=== PATIENT | male | born 1970 | race African-American/Black ===

== ENCOUNTER 2016-12-15 14:05 | Emergency (ER) | payer BC, OTHER ==
[2016-12-15] MEDS ORDERED: METOPROLOL TARTRATE PF/INJ 5 MG/5 ML SDV IV ONE ×2 (14:24→14:34)
[2016-12-15 14:34] LABS: PARTIAL THROMBOPLASTIN TIME 28.5 SEC (23.5-35.8); PROTHROMBIN TIME 12.8 SEC (11.4-15.4)
[2016-12-15 14:37] LABS: HEMATOCRIT 49.8 % (37.9-51.0); HEMOGLOBIN 16.5 g/dL (13.5-17.0); HGB HCT DIFFERENCE -0.3; MEAN CORPUSCULAR HEMOGLOBIN 29.5 pg (27.0-33.4); MEAN CORPUSCULAR HGB CONC 33.2 g/dL (32.0-36.0); MEAN CORPUSCULAR VOLUME 89 fl (80-97); RED CELL DISTRIBUTION WIDTH 14.2 % (11.5-14.0); WHITE BLOOD COUNT 13.1 10^3/uL (4.0-10.5)
[2016-12-15] MEDS ORDERED: ENOXAPARIN SODIUM INJ 100 MG/1 ML DISP.SYRIN SUBCUT ONE (14:41)
[2016-12-15 14:43] LABS: ANION GAP 12 (5-19); BLOOD UREA NITROGEN 13 mg/dL (7-20); CALCIUM 10.3 mg/dL (8.4-10.2); CARBON DIOXIDE 29 mmol/L (22-30); CHLORIDE 100 mmol/L (98-107); CREATINE KINASE 96 U/L (55-170); CREATININE RESULT 1.62 mg/dL (0.52-1.25); GLUCOSE 95 mg/dL (75-110); POTASSIUM 4.1 mmol/L (3.6-5.0); SODIUM 141.3 mmol/L (137-145)
--- NOTE | 2016-12-15 14:47 | ER Document Report ---
ED General - General Stated Complaint: CHEST PAIN Time Seen by Provider: 12/15/16 14:41 Mode of Arrival: Ambulatory Information source: Patient Notes: This is a 46-year-old man with a history of hypertension (not on any antihypertensives at this time) to the emergency room with chest pain radiating up into the neck. 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 He was working last night and started having chest ache radiating into the neck which was associated with shortness of breath. Patient states symptoms began gradually and were not as bad at the time. He states that it started around 4 AM. He states that the pain slowly progressed throughout the day and currently his pain is 8/10. The pain is worse with exertion. He states that walking makes the pain worse. Medical history: Hypertension (not treated), sinus disease. Medicines: Augmentin Past surgical history: None Cigarettes: None Drugs: None Primary CARE physician: [facility] TRAVEL OUTSIDE OF THE [place] IN LAST 30 DAYS: No - HPI Onset: This morning Onset/Duration: Gradual Quality of pain: Dull Severity: Severe - 8/10 at this time Associated symptoms: Chest pain, Shortness of breath. denies: Fever, Nausea, Vomiting Exacerbated by: Denies Relieved by: Denies Similar symptoms previously: No Recently seen / treated by doctor: No Past Medical History - General Information source: Patient - Social History Smoking Status: Never Smoker Cigarette use (# per day): No Chew tobacco use (# tins/day): No Frequency of alcohol use: None Drug Abuse: None Lives with: Family Family History: Reviewed & Not Pertinent Patient has suicidal ideation: No Patient has homicidal ideation: No - Past Medical History Cardiac Medical History: Reports: None Pulmonary Medical History: Reports: None EENT Medical History: Reports: None, Other - History of sinus disease Neurological Medical History: Reports: None Endocrine Medical History: Reports: None Renal/ Medical History: Reports: None Malignancy Medical History: Reports None GI Medical History: Reports: None Musculoskeltal Medical History: Reports None Skin Medical History: Reports None Psychiatric Medical History: Reports: None Traumatic Medical History: Reports: None Infectious Medical History: Reports: None Surgical Hx: Negative Review of Systems - Review of Systems Constitutional: denies: Chills, Fever EENT: No symptoms reported Cardiovascular: See HPI Respiratory: See HPI Gastrointestinal: No symptoms reported Genitourinary: No symptoms reported Male Genitourinary: No symptoms reported Musculoskeletal: No symptoms reported Skin: No symptoms reported Hematologic/Lymphatic: No symptoms reported Neurological/Psychological: No symptoms reported Physical Exam - Vital signs Vitals: Resp BP Pulse Ox 17 180/124 H 97 12/15/16 14:18 12/15/16 14:18 12/15/16 14:18 Notes: Physical exam: GENERAL: 46-year-old man, alert and oriented 3, patient does look pale and mildly diaphoretic HEAD: Atraumatic, normocephalic. EYES: Pupils equal round and reactive to light, extraocular movements intact, sclera anicteric, conjunctiva are normal. ENT: TMs normal, nares patent, oropharynx clear without exudates. Moist mucous membranes. NECK: Normal range of motion, supple without lymphadenopathy or JVD. LUNGS: Breath sounds clear to auscultation bilaterally and equal. No wheezes rales or rhonchi. HEART: Regular rate and rhythm without murmurs, rubs or gallops. ABDOMEN: Soft, normoactive bowel sounds. No tenderness to palpation. No guarding, no rebound. No masses appreciated. EXTREMITIES: Pulses to the upper extremities are equal. Normal range of motion , no pitting or edema. No clubbing or cyanosis. No Swelling or tenderness to the lower extremities NEUROLOGICAL: Cranial nerves II through XII grossly intact. Normal speech, normal gait. PSYCH: Normal mood, normal affect. SKIN: Warm, Dry, normal turgor, no rashes or lesions noted. Course - Re-evaluation Re-evalutation: 12/15/16 14:47 Note: The patient's initial diastolic blood pressure was 123 was noted to have tachycardia (127). The initial EKG shows ST elevations inferiorly as well as V6. Right sided leads do not show any elevations in V4. Patient was treated with IV metoprolol, aspirin, Plavix, Lovenox. The patient's blood pressure was able to be controlled: his blood pressure was lowered to 142/99 at which time thrombolytic was given. I have contacted [facility] transfer to [facility] 12/15/16 20:13 12/15/16 20:16 12/16/16 00:53 - Vital Signs Vital signs: Temp Pulse Resp BP Pulse Ox 99.0 F 23 H 146/108 H 100 12/15/16 15:16 12/15/16 15:10 12/15/16 15:10 12/15/16 15:10 - Laboratory Result Diagrams: 12/15/16 14:19 12/15/16 14:19 Laboratory results interpreted by me: 12/15/16 12/15/16 14:19 14:19 WBC 13.1 H RBC 5.60 H RDW 14.2 H Creatinine 1.62 H Est GFR ( Amer) 56 L Est GFR (Non-Af Amer) 46 L Calcium 10.3 H - Diagnostic Test Radiology reviewed: Image reviewed - Chest x-ray shows no obvious infiltrates. No pneumothorax. Critical Care Note - Critical Care Note Total time excluding time spent on procedures (mins): 55 Discharge - Discharge Clinical Impression: ACS (acute coronary syndrome) Condition: Serious Disposition: [facility]
[2016-12-15] MEDS ORDERED: ONDANSETRON HCL INJ/PF 4 MG/2 ML SDV IV ONE (14:53)
[2016-12-15] MEDS ORDERED: MORPHINE SULFATE 10 MG/ML INJ IV ONE (14:53)
[2016-12-15 14:55] LABS: CREATINE KINASE MB 0.65 ng/mL (<4.55)
[2016-12-15 14:59] LABS: TROPONIN I < 0.012 ng/mL
[2016-12-15] MEDS ORDERED: ACETAMINOPHEN 325 MG TABLET PO ONE (15:01)
--- NOTE | 2016-12-15 15:13 | RADIOLOGY REPORT (SQ) ---
EXAM DESCRIPTION: CHEST SINGLE VIEW COMPLETED DATE/TIME: 12/15/2016 2:28 pm REASON FOR STUDY: Chest Pain r/o GA COMPARISON: None. EXAM PARAMETERS: NUMBER OF VIEWS: One view. TECHNIQUE: Single frontal radiographic view of the chest acquired. RADIATION DOSE: NA LIMITATIONS: None. FINDINGS: LUNGS AND PLEURA: No opacities, masses or pneumothorax. No pleural effusion. MEDIASTINUM AND HILAR STRUCTURES: No masses. Contour normal. HEART AND VASCULAR STRUCTURES: Heart normal in size. Normal vasculature. BONES: No acute findings. HARDWARE: None in the chest. OTHER: No other significant finding. IMPRESSION: NO ACUTE RADIOGRAPHIC FINDING IN THE CHEST. TECHNICAL DOCUMENTATION: JOB ID: [id number]
[2016-12-15 15:22] VITALS: BP 146/108
--- NOTE | 2016-12-15 20:16 | ER Document Report ---
ED Thrombolytic Exclus/Inclus. - Potential Diagnosis Potential Diagnosis: Acute AK - Inclusion Criteria (Acute AK) -: Date & time of symptom onset less than 12 hours -----: Yes : HAD AT LEAST ONE OF THE FOLLOWING ECG CHANGES -: At least 1mm of ST elevation in at least 2 anatomically contiguous leads -----: Yes -: New or presumably new left bundle branch block -----: Yes - Inclusion Criteria (Pulmonary Embolism) -: Clinical diagnosis confirmed by pulmonary angiography or perfusion lung scan - Exclusion Criteria : ABSOLUTE CRITERIA -: Active internal bleeding -----: No -: History of cerebrovascular accident -----: No -: Recent intracranial or intraspinal surgery or trauma -----: No -: Intracranial neoplasm, arteriovenous malformation, or aneurysm -----: No -: Known bleeding diathesis -----: No -: Severe uncontrolled hypertension -----: No -: Suspected aortic dissection -----: No : RELATIVE CRITERIA -: Recent major surgery, e.g. coronary artery bypass graft, obstetrical delivery , organ biopsy -----: No -: Previous puncture of noncompressible vessels -----: No -: Cerebrovascular disease -----: No -: Recent gastrointestinal or genitourinary bleeding -----: No -: Recent rauma (1-4 weeks) -----: No -: Hypertension: systolic BP greter than or equal to 180 mm Hg and/or diastolic BP greater than or equal to 110 mm Hg -----: No -: High likelihood of left heart thrombus, e.g. mitral stenosis with atrial fibrillation -----: No -: Acute pericarditis -----: No -: Subacute bacterial endocarditis -----: No -: Hemostatic defects including those secondary to severe hepatic or renal disease -----: No -: Sever hepatic or renal dysfunction -----: No -: -----: No -: Diabetic hemorrhagic retinopathy or other hemorrhagic ophthalmic conditions -----: No -: Septic thrombophlebitis or occluded AV cannula at a seriously infected site -----: No -: Advanced age -----: No -: Patients currently receiving oral anticoagulants, e.g., warfarin sodium (INR greater than 2-3) -----: No -: Any other condition in which bleeding constitutes a significant hazard or would be particularly difficult to manage because of its location -----: No -: Prolonged (greater than 10 minutes) and potentially traumatic CPR -----: No -: Malignancy with metastasis -----: No
[2016-12-15] MEDS ORDERED: ASPIRIN 81 MG TABLET, CHEWABLE ONE (21:02)
[2016-12-15] MEDS ORDERED: TENECTEPLASE INJ 50 MG KIT IV ONE (21:02)
[2016-12-15] MEDS ORDERED: NITROGLYCERIN 0.4 MG/TAB 25 TAB/BOTTLE ONE (21:02)
[2016-12-15] MEDS ORDERED: CLOPIDOGREL BISULFATE 300 MG TABLET ONE (21:02)
[2016-12-15] MEDS ORDERED: ENOXAPARIN SODIUM INJ 30 MG/0.3 ML DISP.SYRIN ONE (21:02)
--- NOTE | 2016-12-15 22:22 | EKG REPORT ---
SEVERITY:- ABNORMAL ECG - SINUS RHYTHM INFERIOR INJURY, PROBABLE EARLY ACUTE INFARCT LATERAL LEADS ARE ALSO INVOLVED : Confirmed by: Nadja Rodriguez 15-Dec-2016 22:22:16
--- NOTE | 2016-12-15 22:23 | EKG REPORT ---
SEVERITY:- ABNORMAL ECG - SINUS TACHYCARDIA PROBABLE LEFT ATRIAL ABNORMALITY INFERIOR INJURY, PROBABLE EARLY ACUTE INFARCT CONSIDER POSTERIOR WALL INVOLVEMENT LATERAL LEADS ARE ALSO INVOLVED : Confirmed by: Nadja Rodriguez 15-Dec-2016 22:22:37
--- NOTE | 2016-12-16 17:48 | EKG REPORT ---
SEVERITY:- ABNORMAL ECG - SINUS TACHYCARDIA PROBABLE LEFT ATRIAL ABNORMALITY INFERIOR INJURY, PROBABLE EARLY ACUTE INFARCT BORDERLINE R WAVE PROGRESSION, ANTERIOR LEADS : Confirmed by: Nadja Rodriguez 16-Dec-2016 17:47:39
== END 2016-12-15 15:16 | disposition short-term general hospital (02) ==
LOC: ER 14:05
DX: I24.9 Acute ischemic heart disease, unspecified (principal); I10 Essential (primary) hypertension; I44.7 Left bundle-branch block, unspecified; R07.9 Chest pain, unspecified; R06.02 Shortness of breath; R00.0 Tachycardia, unspecified
CPT/HCPCS: 93005; 99291; 96372; 96374; 36415; 82553; 82550; 85027; 85610; 85730; 80048; 84484; 71010; 93010; J3101; J3490; J2405; J1650 ×2